=== PATIENT | female | born 1945 | race Caucasian/White ===

== ENCOUNTER 2024-01-24 09:09 | Emergency (ER) | payer MEDICARE, SELFPAY ==
[2024-01-24] VITALS (9 sets, daily range): BP systolic 95–135; BP diastolic 51–68; PULSE 55–68; RESP 16–18; TEMP 37.2; O2SAT 91–98; BMI 29.2
--- NOTE | 2024-01-24 09:26 | PC.NURSE ---
UA sent to lab Dr. Sosa at [facility] for pt eval; family also at [facility]
--- NOTE | 2024-01-24 09:34 | CT_ITS ---
PROCEDURE INFORMATION: Exam: CT Abdomen And Pelvis With Contrast Exam date and time: 01/24/2024 11:30 AM Age: 78 years old Clinical indication: Nausea and vomiting and other: Diarrhea; Additional info: Diffuse abd pain; Nausea TECHNIQUE: Imaging protocol: Computed tomography of the abdomen and pelvis with contrast. Radiation optimization: All CT scans at this facility use at least one of these dose optimization techniques: automated exposure control; mA and/or kV adjustment per patient size (includes targeted exams where dose is matched to clinical indication); or iterative reconstruction. Contrast material: ISOVUE; Contrast volume: 75 ml; Contrast route: IV; COMPARISON: No relevant prior studies available. FINDINGS: Lungs: Lung bases are unremarkable. Liver: There is a 1.6 cm right hepatic lobe cyst. Gallbladder and biliary ducts: Gallbladder is distended without radiopaque cholelithiasis. No biliary ductal dilation. Pancreas: Normal. No ductal dilation. Spleen: No splenomegaly. Adrenal glands: Indeterminate 1.8 cm right adrenal nodule. Kidneys and ureters: Nephrograms are symmetric. No nephrolithiasis or hydroureteronephrosis on either side. No solid lesions. Scattered subcentimeter hypodensities in both kidneys are too small to accurately characterize. Stomach and bowel: There is liquid stool in the distal small bowel loops and throughout the colon. Mucosal hyperenhancement noted. Appendix: No evidence of appendicitis. Intraperitoneal space: There is no evidence of free intraperitoneal or pelvic fluid. There is no evidence of free intraperitoneal or pelvic fluid. Vasculature: The aorta demonstrates moderate atherosclerotic calcification. Lymph nodes: No evidence of retroperitoneal or mesenteric lymphadenopathy. Urinary bladder: Urinary bladder is unremarkable. Reproductive: Status post hysterectomy. Bones/joints: Degenerative anterolisthesis at L3 and L4 levels. No acute osseous abnormality. Soft tissues: Unremarkable. IMPRESSION: 1. Infectious/inflammatory enterocolitis 2. Indeterminate 1.8 cm right adrenal nodule. Comparison with prior exams to determinate stability or further evaluation with cross-sectional imaging with adrenal protocol can be obtained COMMENTS: Consistent with the [employer]'s Incidental Findings Committee white paper (J Am Josh Radiol 2018): Any incidental renal lesion less than 1 cm or classified as too small to characterize, or any incidental cystic renal lesion characterized as simple-appearing, is likely benign. No follow-up imaging is recommended for these lesions per consensus recommendations based on imaging criteria.
--- NOTE | 2024-01-24 09:34 | CT_ITS ---
PROCEDURE INFORMATION: Exam: CT Head Without Contrast Exam date and time: 01/24/2024 11:27 AM Age: 78 years old Clinical indication: Other: Nausea; Additional info: History of frontal sinus/brain mass - nausea TECHNIQUE: Imaging protocol: Computed tomography of the head without contrast. Radiation optimization: All CT scans at this facility use at least one of these dose optimization techniques: automated exposure control; mA and/or kV adjustment per patient size (includes targeted exams where dose is matched to clinical indication); or iterative reconstruction. COMPARISON: No relevant prior studies available. FINDINGS: Brain: There is no evidence of acute intracranial hemorrhage, extra-axial collection or locoregional mass effect. There are scattered hypodensities in the periventricular and subcortical white matter. The appearance is nonspecific, but most likely represents chronic small vessel disease in a person of this age. Cerebral ventricles: The ventricles, sulci and cisterns are normal in size and configuration. No hydrocephalus or midline structure shift Pituitary gland and sella: Pituitary gland is diffusely suspicious for lesions spread/invasion/primary pituitary neoplasm. Paranasal sinuses: There is dense soft tissue density in the sphenoid sinus. There is bone remodeling with thinning and dehiscence of the clivus. The lesion extends laterally in the left cavernous and sellar region. Mastoid air cells: Visualized mastoid air cells are well aerated. Bones: See Paranasal sinuses finding. Soft tissues: Unremarkable. 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 The sphenoid sinuse is opacified. Considerations are wide but not limited to locally invasive pituitary microadenoma, meningioma, metastases, and hematopoietic disorders such as lymphoma or myeloma. Evaluation with brain MRI is recommended for better evaluation (if not already performed).
--- NOTE | 2024-01-24 09:36 | ED_ITS ---
Discharge Plan Disposition Patient Disposition: Home, Self-Care Prescriptions Prescriptions: New ondansetron 4 mg tablet,disintegrating 4 mg PO Q6H PRN (Reason: nausea and vomiting) 5 Days Qty: 20 0RF Referrals Follow up/Referrals: Provider,Referral, [Referring] - See instructions Activity Restrictions/Add. Instructions Additional Instructions/Restrictions: Regarding your nausea vomiting and diarrhea your CT scan was consistent with enterocolitis which is most likely viral. Please follow with primary care doctor regarding this. 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 I spoke with [facility] they have her contact information and should call you early next week for a follow-up appointment with neurosurgery as well as with ENT. Clinical Impressions Clinical Impression: Nausea, Abdominal pain, Enterocolitis, Mass of sphenoid sinus Instructions Patient Instructions: DI for Diarrhea and Traveler's Diarrhea -- Adult, DI for Diarrhea and Traveler's Diarrhea -- Child, DI for Nausea -- Adult, DI for Nausea -- Child Print Language Print Language: Amharic Discharge ED Provider: Angélica Sosa General Adult HPI General Chief complaint: Nausea/Vomiting/Diarrhea Stated complaint: leg weakness, lethargic Time Seen by Provider: 01/24/24 09:25 Mode of Arrival: Ambulatory Source of Information: Patient Limitations: No Limitations Description of Symptoms (Recalled from ER Triage Doc. by RN): Patient reports that her cereal is not agreeing with her this morning. States she ate raisin brain and now she is nauseated. Son reports she has not had her medication in two weeks because they ran out of them and has an appointment today at 230 with Darius Kent to establish care. History of Present Illness HPI narrative: Patient is a 78-year-old female presented with multiple complaints. She is accompanied by her son and her grandson who are also historians. Apparently she was at a senior citizen citizen this morning, an activity center when they felt that she was acting confused. She also has had some nausea and vomiting. She states that she has ongoing nausea at the moment and some abdominal pain. 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 This was diagnosed in [place] and since she moved to [place] this has not been followed up on. She has no primary care doctor and has established care to be seen by Mima Hernandez with Dr. Walls this afternoon. At the moment family states that she is at her baseline and not confused and she denies any current focal neurologic deficits from historical standpoint. Related Data Previous Rx's ?Medication ?Instructions ?Recorded ondansetron 4 mg disintegrating 4 mg PO Q6H PRN nausea and 01/24/24 tablet vomiting 5 days #20 tabs Allergies Allergy/AdvReac Type Severity Reaction Status Date / Time No Known Allergies Allergy Verified 01/24/24 09:30 [facility] Disclaimer: The information contained in this section may have been updated after the patient was seen, as this information can be updated by other users. Social History Smoking Status: Unknown if ever smoked alcohol intake: never current occupational status: other ROS Obtained: Yes All systems reviewed & no additional complaints except as documented Physical Exam General General appearance: alert and in no apparent distress Head Head exam: atraumatic and normocephalic Respiratory Respiratory exam: Present normal lung sounds bilaterally Cardiovascular Cardiovascular exam: Present regular rate Abdominal Exam Abdominal exam: Present soft and tenderness (Diffuse abdominal tenderness with deep palpation no rebound or guarding) Neurological Exam Neurological exam: Present alert, oriented X3, CN II-XII intact, normal gait and other (Nonfocal); Absent motor sensory deficit Medical Decision Making Medical Records Screening: Per USPSTF and CDC recommendations, given the prevalence of disease in our region, it is our hospital?s policy to screen for HIV and viral Hepatitis for all patients aged 18 and over and those with ongoing risk factors. Mahesh Inquiry Pt receiving controlled substance: No Vital Signs: 01/24/24 09:11 01/24/24 09:18 01/24/24 11:45 Temperature 98.9 F Temperature Source Oral Pulse Rate 61 65 Pulse Rate [Radial] 68 Respiratory Rate 16 Blood Pressure 105/52 L Blood Pressure [Right Arm] 95/55 L Blood Pressure Mean 62 Blood Pressure Mean [Right Arm] 68 Blood Pressure Source [Right Arm] Automatic Cuff Blood Pressure Position [Right Arm] Sitting 02 Sat by Pulse Oximetry 98 96 92 L Oxygen Delivery Method Room Air Room Air 01/24/24 12:00 01/24/24 12:15 01/24/24 12:30 Temperature Temperature Source Pulse Rate 55 L 59 L 58 L Pulse Rate [Radial] Respiratory Rate Blood Pressure 108/51 L 116/55 L 122/59 L Blood Pressure [Right Arm] Blood Pressure Mean 62 66 68 Blood Pressure Mean [Right Arm] Blood Pressure Source [Right Arm] Blood Pressure Position [Right Arm] 02 Sat by Pulse Oximetry 93 L 96 96 Oxygen Delivery Method Room Air Room Air Room Air 01/24/24 12:45 01/24/24 13:01 Temperature Temperature Source Pulse Rate 59 L 65 Pulse Rate [Radial] Respiratory Rate Blood Pressure 133/62 126/63 Blood Pressure [Right Arm] Blood Pressure Mean 79 73 Blood Pressure Mean [Right Arm] Blood Pressure Source [Right Arm] Blood Pressure Position [Right Arm] 02 Sat by Pulse Oximetry 91 L 94 L Oxygen Delivery Method Lab Data Lab results reviewed: Yes I reviewed the patient's lab results. Lab Results 01/24/24 09:25: Urine Color Yellow, Urine Appearance Clear, Urine pH 5.5, Ur Specific [place] >= 1.030, Urine Protein Negative, Urine Glucose (UA) Negative, Urine Ketones Negative, Urine Blood Negative, Urine Nitrate Negative, Urine Bilirubin 1+ A, Urine Urobilinogen 0.2, Ur Leukocyte Esterase Negative, Urine RBC None, Urine WBC None, Ur Squamous Epith Cells 20-50, Urine Bacteria 1+ 01/24/24 09:40: WBC 6.3, RBC 4.87, Hgb 14.3, Hct 44.6, MCV 91.6, MCH 29.3, MCHC 32.0, RDW 14.6, Plt Count 222, MPV 7.9, Neut % (Auto) 67.1, Lymph % (Auto) 22.3, [place] % (Auto) 8.7, Eos % (Auto) 0.9, Baso % (Auto) 1.1, Neut # (Auto) 4.2, Lymph # (Auto) 1.4, [place] # (Auto) 0.6, Eos # (Auto) 0.1, Baso # (Auto) 0.1, Sodium 143, Potassium 3.5, Chloride 106, Carbon Dioxide 25, Anion Gap 15.5 H, BUN 21 H, Creatinine 1.00, Estimated Creat Clear 49, Estimated GFR 53 L, Est GFR ( Amer) 65, Glucose 255 H, Calcium 9.2, Total Bilirubin 0.6, AST 27, ALT 25, Alkaline Phosphatase 79, Total Protein 7.3, Albumin 4.3, Globulin 3.0, Albumin/Globulin Ratio 1.4, Lipase 91 01/24/24 09:40 01/24/24 09:40 Orders (Tests/Meds): ED MEDICATIONS Discontinued Medications Generic Name Dose Route Start Last Admin Trade Name Davidq PRN Reason Stop Dose Admin Lactated Ringer's 1,000 mls @ 999 mls/hr 01/24/24 09:45 01/24/24 09:43 Lactated Ringer's 1000 Ml Bag IV 01/24/24 10:45 999 mls/hr .Q1H1M MANJEET Administration Iopamidol 75 ml 01/24/24 11:45 01/24/24 11:46 Iopamidol-370 (76%);100ml Bottle IV 01/24/24 11:46 75 ml ONCE ONE Administration Ondansetron HCl 4 mg 01/24/24 09:34 01/24/24 09:43 Ondansetron 4mg/2ml Vial IV 01/24/24 09:35 4 mg ONCE ONE Administration Ondansetron HCl 4 mg 01/24/24 11:30 01/24/24 11:32 Ondansetron 4mg/2ml Vial IV 01/24/24 11:31 4 mg ONCE ONE Administration Sodium Chloride 10 ml 01/24/24 11:45 01/24/24 11:46 Sodium Chloride 0.9% 10ml Syr (Rad Only) IV 01/24/24 11:46 10 ml ONCE ONE Administration ORDERS Category Date Time Status CT abdomen pelvis w con Stat Cat Scan 01/24/24 09:[address] head/brain wo con Stat Cat Scan 01/24/24 09:34 Completed CBC w/Auto Diff [Complete Blood Count Auto Diff] Stat Lab 01/24/24 09:40 Completed CMP [Comprehensive Metabolic Panel] Stat Lab 01/24/24 09:40 Completed Lipase Stat Lab 01/24/24 09:40 Completed UA [Urinalysis and Microscopic] Stat Lab 01/24/24 09:25 Completed Medical Decision Narrative: 78-year-old female with relatively benign abdominal exam nonfocal neurologic exam presented with nausea but some abdominal pain with deep tenderness. Differential is broad and from an abdominal standpoint could be malignancy bowel obstruction etc. will get a contrasted CT scan. With a history of frontal sinus/frontal lobe mass certainly intracranial pressure increases could be causing nausea as well get get a noncontrasted CT scan for further evaluation. Nausea medicine IV fluids CT scans pending will reassess. Reassessment clinically of the patient at 1:25 PM she appears well GCS of 15 nonfocal neurologic exam abdominal exam is benign. Labs unremarkable from an emergency standpoint. CT scan of the patient's abdomen pelvis I personally interpreted which shows diffuse enterocolitis most likely viral. I suspect this is not bacterial in nature or associated with ischemia etc. Regarding the CT of her head there is a mass originating in the sphenoid sinus that is locally destructive as well as invasive into the sella and parasellar regions. I discussed the case with Dr. Szymanski who reviewed the images with [facility] neurosurgery and we will get a follow-up appointment with ENT as well as neurosurgery that should call early next week for those follow-up appointments family and patient are aware of this and agreeable to this plan. Lastly I encouraged that she keep her primary care appointment this afternoon to establish care for someone to coordinate all of this. Critical Care Critical Care Time Critical Care Time: No
[2024-01-24 09:39] LABS: Microscopic, Urine URINE MICROSCOPIC (MICROSCOPIC)
[2024-01-24] MEDS: LACTATED RINGERS 1000ML 1,000 ML 999 ML IV (09:43)
[2024-01-24] MEDS: ONDANSETRON 4MG/2ML VIAL 4 MG IV ×2 (09:43→11:32)
[2024-01-24 09:47] LABS: Appearance,Urine CLEAR (Clear); Blood, Urine Negative (Negative); Color,Urine YELLOW (Yellow); Glucose,Urine (UA) Negative (Negative); Ketones,Urine Negative (Negative); Leukocyte Esterase,Urine Negative (Negative); Nitrate,Urine Negative (Negative); PH,Urine 5.5 (5.0-8.5); Protein,Urine Negative (Negative); Specific Gravity, Urine >= 1.030 (1.005-1.030); Urobilinogen,Urine 0.2 EU/dl (0.2)
[2024-01-24 09:53] LABS: Basophils # 0.1 K/mm3 (0-0.2); Basophils % 1.1 % (0.1-2.0); Eosinophils # 0.1 K/mm3 (0.0-0.4); Eosinophils % 0.9 % (0.1-12.0); Hematocrit 44.6 % (37.0-47.0); Hemoglobin 14.3 g/dL (12.2-16.2); Lymphocytes # 1.4 K/mm3 (0.7-4.5); Lymphocytes % 22.3 % (10-50); Mean Corpuscular Hemoglobin 29.3 pg (27.0-31.2); Mean Corpuscular Volume 91.6 fl (81-99); Mean Platelet Volume 7.9 fl (7.4-10.4); Monocytes # 0.6 K/mm3 (0.1-1.0); Monocytes % 8.7 % (1.7-9.3); Neutrophils # 4.2 K/mm3 (1.8-7.8); Neutrophils % 67.1 % (37.0-80.0); Platelet Count 222 K/mm3 (142-424); Red Blood Count 4.87 M/mm3 (4.20-5.40); Red Cell Distribution Width 14.6 % (11.5-17.5); White Blood Count 6.3 K/mm3 (4.8-10.8)
[2024-01-24 09:55] LABS: Bilirubin,Urine 1+ (Negative)
[2024-01-24 09:56] LABS: Albumin Level 4.3 g/dl (3.5-5.0); Chloride 106 mmol/L (98-107); Potassium 3.5 mmoL/L (3.5-5.1); Sodium 143 mmol/L (136-145)
[2024-01-24 09:58] LABS: Blood Urea Nitrogen 21 mg/dl (7-17); Creatinine Clearance Estimated 49 mL/min (50-200); Estimated Glomerular Filt Rate 53 ml/min (>60); GFR (African American) 65 ML/MIN (>60)
[2024-01-24 09:59] LABS: Alanine Aminotransferase 25 U/L (12-78); Albumin/Globulin Ratio 1.4 (1.1-1.8); Alkaline Phosphatase 79 U/L (38-126); Anion Gap 15.5 mEq/L (5-15); Aspartate Amino Transferase 27 U/L (14-36); Bilirubin,Total 0.6 mg/dl (0.2-1.3); Calcium 9.2 mg/dl (8.4-10.2); Carbon Dioxide 25 mmol/L (22.0-30.0); Glucose 255 mg/dl (74-100); Lipase 91 U/L (23-300); Total Protein,Serum 7.3 g/dl (6.3-8.2)
[2024-01-24 10:07] LABS: Bacteria,Urine 1+ /lpf; Squamous Epithelial Cell,Urine 20-50 #/hpf (0-5)
--- NOTE | 2024-01-24 10:12 | PC.NURSE ---
pt ambulatory to restroom
--- NOTE | 2024-01-24 11:14 | PC.NURSE ---
pt going to CT
[2024-01-24] MEDS: IOPAMIDOL-370 (76%);100ML BOTTLE 75 ML IV (11:46)
[2024-01-24] MEDS: SODIUM CHLORIDE 0.9% 10ML SYR (RAD ONLY) 10 ML IV (11:46)
--- NOTE | 2024-01-24 12:54 | PC.NURSE ---
Called [facility] for Neurosurgery consult; awaiting a call back. Disc imaging is being made and images were powershared to [facility]
--- NOTE | 2024-01-24 12:56 | PC.NURSE ---
Dr. Sosa speaking with [facility] Neurosurgery
--- NOTE | 2024-01-24 13:27 | PC.NURSE ---
pt had an incontinent BM on ED stretcher; I assisted in helping get her cleaned up. Pants were soiled and placed in a belonging bag.
== END 2024-01-24 13:37 | disposition home or self-care (01) ==
PROVIDERS: Emergency Provider Student in an Organized Health Care Education/Training Program; PCP Family Medicine
DX: J34.89 Other specified disorders of nose and nasal sinuses (principal); K52.9 Noninfective gastroenteritis and colitis, unspecified; R11.0 Nausea; R10.9 Unspecified abdominal pain; R41.82 Altered mental status, unspecified; R53.1 Weakness
CPT/HCPCS: 70450; 74177; 80053; 81001; 83690; 85025; 96361; 96374; 96375; 99285; J2405; J7120; Q9967

== ENCOUNTER 2024-03-05 14:45 | Outpatient (CLI) | payer MEDICARE, SELFPAY ==
[2024-03-05] MEDS: GADOTERIDOL INJ 20ML SYRINGE 19 ML IV ×2 (09:19→19:00)
--- NOTE | 2024-03-05 15:00 | MR_ITS ---
PROCEDURE INFORMATION: Exam: MR Head Without and With Contrast, Sella Exam date and time: 03/05/2024 3:52 PM Age: 79 years old Clinical indication: Other: Eval pituitary; Prior surgery; Surgery date: <1 month; Surgery type: Sinus biopsy; Additional info: Evaluate pituitary TECHNIQUE: Imaging protocol: MR of the head without and with intravenous contrast. Exam focused on the sella. Contrast material: PROHANCE; Contrast volume: 19 ml; Contrast route: IV; COMPARISON: CT HEAD/BRAIN WO CON 01/24/2024 11:27 AM FINDINGS: Brain: The cerebellar tonsils are not low-lying. There is no abnormal restricted diffusion in the brain. There is mild prominence of the cerebral sulci. There are scattered foci of increased T2 signal in the supratentorial white matter. There is normal signal in the basal ganglia, thalamus, brainstem and cerebellum. There are no pathologic extra-axial fluid collections. Intracranial flow voids are patent. Hippocampi are symmetric and normal in appearance. There are no areas of abnormal enhancement in the brain. Cerebral ventricles: Unremarkable. No ventriculomegaly. Pituitary gland and sella: The anterior pituitary gland is not enlarged. Mastoid air cells: Mastoid air cells are clear. Paranasal sinuses: There appears to be extension into the left cavernous sinus and posterior ethmoid air cells. There is abnormal restricted diffusion within the sphenoid sinus lesion. The maxillary sinuses, anterior ethmoid air cells and frontal sinuses are clear. Orbital cavities: Globes and orbits are normal. Optic nerves and optic chiasm have normal signal. Bones/joints: There is a T1 and T2 hyperintense lesion involving the sphenoid sinus with no significant postcontrast enhancement. IMPRESSION: 1. There is a nonenhancing T1 hyperintense lesion with the epicenter in the sphenoid sinus. Differential consideration includes allergic fungal sinusitis versus proteinaceous secretions. There appears to be extension into the left cavernous sinus. Correlation with CTA head angiogram is recommended. 2. Anterior pituitary gland appears unremarkable and is not enlarged. 3. Mild chronic small vessel ischemic disease changes are present.
[2024-03-05 15:11] LABS: Blood Urea Nitrogen 28 mg/dl (7-17); Estimated Glomerular Filt Rate 60 ml/min (>60); GFR (African American) 73 ML/MIN (>60)
[2024-03-05] MEDS: 0.9 % SODIUM CHLORIDE 50 ML VIAL IV (17:22)
[2024-03-05] MEDS: SODIUM CHLORIDE 0.9% 10ML SYR (RAD ONLY) 10 ML IV (17:22)
== END 2024-03-05 23:59 | disposition home or self-care (01) ==
LOC: RAD 14:46
PROVIDERS: PCP Family Medicine; Visit Provider Neurological Surgery
DX: D35.2 Benign neoplasm of pituitary gland (principal)
CPT/HCPCS: 36415; 70553; 82565; 84520; A9576

== ENCOUNTER 2024-04-27 12:54 | Emergency (ER) | payer MEDICARE, SELFPAY ==
--- NOTE | 2024-04-27 12:56 | HMH.EDGENADL ---
Discharge Plan Disposition Patient Disposition: Home, Self-Care Condition: Good Prescriptions Prescriptions: No Action pantoprazole 40 mg tablet,delayed release (DR/EC) 40 mg PO DAILY Qty: 30 2RF simvastatin 20 mg tablet 20 mg PO DAILY Qty: 30 2RF cyclobenzaprine 5 mg tablet 5 mg PO HS Qty: 30 0RF duloxetine 30 mg capsule,delayed release(DR/EC) See Rx Instructions .ROUTE .COMPLEX Qty: 90 2RF Dose Instruction: Take 1 capsule by mouth once daily Rx Instructions: Take 1 capsule by mouth once daily ondansetron 4 mg tablet,disintegrating 4 mg PO Q6H PRN (Reason: nausea and vomiting) 5 Days Qty: 20 0RF Referrals Follow up/Referrals: Dwaine Walls MD [Primary Care Provider] - See instructions Activity Restrictions/Add. Instructions Additional Instructions/Restrictions: Please utilize bacitracin or Neosporin on your abrasion on your nose. They found incidentally a thyroid nodule. You need to follow-up with your PCP to have this evaluated as an outpatient. If you have any new continued or worsening signs or symptoms follow-up with your PCP sooner or return to the ER. Clinical Impressions Clinical Impression: Abrasion of nose Qualifiers: Encounter type: initial encounter Qualified Code(s): S00.31XA - Abrasion of nose, initial encounter Fall Qualifiers: Encounter type: initial encounter Qualified Code(s): W19.XXXA - Unspecified fall, initial encounter Instructions Patient Instructions: DI for Laceration Repair Print Language Print Language: Uzbek Discharge ED Provider: Randy Romero General Adult HPI <CHARLENE Harris - Last Filed: 04/27/24 14:48> General Chief complaint: Wound/Laceration Stated complaint: [id number], Laceration to bridge of nose, Time Seen by Provider: 04/27/24 12:56 History of Present Illness HPI narrative: Patient presents for evaluation of facial trauma. Patient states she was walking through her yard slipped on ice/snow landing face first in the yard. She was able to get up immediately and denies any head neck pain loss of consciousness but noticed that she was bleeding. She suffered a lesion across the bridge of her nose. Patient denies any other injury or pain. Related Data Previous Rx's ?Medication ?Instructions ?Recorded ondansetron 4 mg disintegrating 4 mg PO Q6H PRN nausea and 01/24/24 tablet vomiting 5 days #20 tabs pantoprazole 40 mg tablet,delayed 40 mg PO DAILY #30 tabs 01/24/24 release simvastatin 20 mg tablet 20 mg PO DAILY #30 tabs 01/24/24 cyclobenzaprine 5 mg tablet 5 mg PO HS #30 tabs 03/26/24 duloxetine 30 mg capsule,delayed See Rx Instructions .Route 04/13/24 release .COMPLEX #90 ea Allergies Allergy/AdvReac Type Severity Reaction Status Date / Time No Known Allergies Allergy Verified 04/27/24 13:10 PFS <CHARLENE Harris - Last Filed: 04/27/24 14:48> [facility] Disclaimer: The information contained in this section may have been updated after the patient was seen, as this information can be updated by other users. Social History Smoking Status: Never smoker alcohol intake: never current occupational status: other Travel in the last 8 weeks: None Other Medical History Have you received the Pneumonia Vaccine: Yes <CHARLENE Harris - Last Filed: 04/27/24 14:48> ROS Obtained: Yes Systems reviewed as appropriate & no additional complaints except as documented Physical Exam <CHARLENE Harris - Last Filed: 04/27/24 14:48> General General appearance: alert and in no apparent distress Respiratory Respiratory exam: Present normal lung sounds bilaterally Cardiovascular Cardiovascular exam: Present regular rate Neurological Exam Neurological exam: Present alert and oriented X3 Medical Decision Making <CHARLENE Harris - Last Filed: 04/27/24 14:48> Medical Records Screening: Per USPSTF and CDC recommendations, given the prevalence of disease in our region, it is our hospital?s policy to screen for HIV and viral Hepatitis for all patients aged 18 and over and those with ongoing risk factors. Mahesh Inquiry Pt receiving controlled substance: No Vital Signs: 04/27/24 13:03 04/27/24 13:15 04/27/24 13:46 Temperature 99.4 F Temperature Source Oral Pulse Rate 98 H 75 Pulse Rate [Right] 88 Respiratory Rate 18 Blood Pressure 167/108 H 178/89 H Blood Pressure [Right Arm] 188/110 H Blood Pressure Mean [Right Arm] 136 Blood Pressure Source Blood Pressure Source [Right Arm] Automatic Cuff Blood Pressure Position Blood Pressure Position [Right Arm] Sitting 02 Sat by Pulse Oximetry 95 95 92 L Oxygen Delivery Method Room Air Room Air Room Air 04/27/24 14:00 04/27/24 14:15 04/27/24 14:40 Temperature 98.1 F Temperature Source Oral Pulse Rate 98 H 100 H 72 Pulse Rate [Right] Respiratory Rate 18 Blood Pressure 165/101 H 179/125 H 191/117 H Blood Pressure [Right Arm] Blood Pressure Mean [Right Arm] Blood Pressure Source Automatic Cuff Blood Pressure Source [Right Arm] Blood Pressure Position Sitting Blood Pressure Position [Right Arm] 02 Sat by Pulse Oximetry 94 L 95 Oxygen Delivery Method Room Air Room Air Room Air Orders (Tests/Meds): ED MEDICATIONS Discontinued Medications Generic Name Dose Route Start Last Admin Trade Name Freq PRN Reason Stop Dose Admin Acetaminophen 1,000 mg 04/27/24 13:11 04/27/24 13:19 Acetaminophen 500mg Tab PO 04/27/24 13:12 1,000 mg ONCE ONE Administration Tetanus/Reduced Diphtheria/Acell Pertussis 0.5 ml 04/27/24 13:11 04/27/24 13:20 Tet/Diphth/Pert-Adult 0.5ml Syringe IM 04/27/24 13:12 0.5 ml .ONCE ONE Administration ORDERS Category Date Time Status CT cervical spine wo con Stat Cat Scan 04/27/24 13:[address] facial bones wo con Stat Cat Scan 04/27/24 13:[address] head/brain wo con Stat Cat Scan 04/27/24 13:11 Completed Medical Decision Narrative: In summary patient is a 79-year-old female who presents to the emergency department for evaluation of fall. Patient is initially hypertensive at 188/110 with a pulse of 88 with sinus rhythm on the bedside monitor breathing 18 times a minute satting at 95% on room air upon arrival, with a temperature of 99.4 currently. Physical exam is remarkable for an abrasion over the bridge of her nose but no palpable bony deformity. Nares are patent with no evidence of epistaxis. Posterior neck is soft nontender no palpable bony deformity. Patient is awake alert and oriented person but circumstance [place] Coma Score 15 cranial nerves II through XII are intact grossly to exam. Differential diagnosis includes simple abrasion versus facial fracture versus C-spine injury versus head injury etc. Initial workup will be conducted with CT scan of the head C-spine and face without contrast. Initial interventions include Tylenol and Tdap. 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 Incidentally a thyroid nodule seen on the right incompletely imaged. Upon repeat evaluation patient reports good improvement after initial intervention of her face pain. Given this patient is appropriate for discharge with follow-up with her PCP for outpatient evaluation of her thyroid nodule and wound care instructions were given for topical bacitracin or Neosporin and strict return precautions. <Randy Romero MD - Last Filed: 04/27/24 20:10> Vital Signs: 04/27/24 13:03 04/27/24 13:15 04/27/24 13:46 Temperature 99.4 F Temperature Source Oral Pulse Rate 98 H 75 Pulse Rate [Right] 88 Respiratory Rate 18 Blood Pressure 167/108 H 178/89 H Blood Pressure [Right Arm] 188/110 H Blood Pressure Mean [Right Arm] 136 Blood Pressure Source Blood Pressure Source [Right Arm] Automatic Cuff Blood Pressure Position Blood Pressure Position [Right Arm] Sitting 02 Sat by Pulse Oximetry 95 95 92 L Oxygen Delivery Method Room Air Room Air Room Air 04/27/24 14:00 04/27/24 14:15 04/27/24 14:40 Temperature 98.1 F Temperature Source Oral Pulse Rate 98 H 100 H 72 Pulse Rate [Right] Respiratory Rate 18 Blood Pressure 165/101 H 179/125 H 191/117 H Blood Pressure [Right Arm] Blood Pressure Mean [Right Arm] Blood Pressure Source Automatic Cuff Blood Pressure Source [Right Arm] Blood Pressure Position Sitting Blood Pressure Position [Right Arm] 02 Sat by Pulse Oximetry 94 L 95 Oxygen Delivery Method Room Air Room Air Room Air Orders (Tests/Meds): ED MEDICATIONS Discontinued Medications Generic Name Dose Route Start Last Admin Trade Name Freq PRN Reason Stop Dose Admin Acetaminophen 1,000 mg 04/27/24 13:11 04/27/24 13:19 Acetaminophen 500mg Tab PO 04/27/24 13:12 1,000 mg ONCE ONE Administration Tetanus/Reduced Diphtheria/Acell Pertussis 0.5 ml 04/27/24 13:11 04/27/24 13:20 Tet/Diphth/Pert-Adult 0.5ml Syringe IM 04/27/24 13:12 0.5 ml .ONCE ONE Administration ORDERS Category Date Time Status CT cervical spine wo con Stat Cat Scan 04/27/24 13:[address] facial bones wo con Stat Cat Scan 04/27/24 13:[address] head/brain wo con Stat Cat Scan 04/27/24 13:11 Completed Medical Decision Narrative: In summary patient is a 79-year-old female who presents to the emergency department for evaluation of fall. Patient is initially hypertensive at 188/110 with a pulse of 88 with sinus rhythm on the bedside monitor breathing 18 times a minute satting at 95% on room air upon arrival, with a temperature of 99.4 currently. Physical exam is remarkable for an abrasion over the bridge of her nose but no palpable bony deformity. Nares are patent with no evidence of epistaxis. Posterior neck is soft nontender no palpable bony deformity. Patient is awake alert and oriented person but circumstance [place] Coma Score 15 cranial nerves II through XII are intact grossly to exam. Differential diagnosis includes simple abrasion versus facial fracture versus C-spine injury versus head injury etc. Initial workup will be conducted with CT scan of the head C-spine and face without contrast. Initial interventions include Tylenol and Tdap. 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 Incidentally a thyroid nodule seen on the right incompletely imaged. Upon repeat evaluation patient reports good improvement after initial intervention of her face pain. Given this patient is appropriate for discharge with follow-up with her PCP for outpatient evaluation of her thyroid nodule and wound care instructions were given for topical bacitracin or Neosporin and strict return precautions. I was consulted by the KARTIK, and we discussed the complexity of the problems being addressed. I approve the treatment and management plan for this patient's care in the emergency department, thus performing a substantive portion of the medical decision making. Randy Romero MD Critical Care <CHARLENE Harris - Last Filed: 04/27/24 14:48> Critical Care Time Critical Care Time: No
[2024-04-27 13:03] VITALS: BP 188/110; PULSE 88; RESP 18; TEMP 37.4; O2SAT 95; BMI 27.4
--- NOTE | 2024-04-27 13:11 | CT_ITS ---
FINAL REPORT TECHNIQUE: Noncontrast exam This study was performed with techniques to keep radiation doses as low as reasonably achievable, (ALARA). Individualized dose reduction techniques using automated exposure control or adjustment of mA and/or kV according to the patient''s size were employed. CLINICAL HISTORY: Fall, facial trauma to nose COMPARISON: 01/24/2024 FINDINGS: There is chronic opacification of the sphenoid sinus with abnormal soft tissue density expanding into the pituitary fossa. There is a small component of suprasellar soft tissue. 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 Findings are stable from prior exam. There is a chronic lacunar infarct in the right basal ganglia. There is mild generalized atrophy and mild chronic microvascular change. No abnormal density is seen. Ventricles are normal. There is no hemorrhage. No mass effect is seen. 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 No acute intracranial abnormality. Reviewed, Interpreted and Dictated by Sylvester August MD Transcribed by Yenifer Dykes Authenticated and [facility] [place] [place]
--- NOTE | 2024-04-27 13:11 | CT_ITS ---
FINAL REPORT TECHNIQUE: Thin section axial CT with sagittal reconstruction without contrast This study was performed with techniques to keep radiation doses as low as reasonably achievable, (ALARA). Individualized dose reduction techniques using automated exposure control or adjustment of mA and/or kV according to the patient''s size were employed. CLINICAL HISTORY: Fall, facial trauma to nose FINDINGS: No fracture is seen. There is minimal anterolisthesis of C4 on C5 which is degenerative in nature. There is mild to moderate degenerative disc disease. There is no bony canal stenosis. An incidental mass is noted of the right thyroid. IMPRESSION: Moderate degenerative changes without acute cervical injury. Incidental right thyroid mass. Consider ultrasound if clinically indicated. Reviewed, Interpreted and Dictated by Sylvester August MD Transcribed by Yenifer Dykes Authenticated and [facility]
--- NOTE | 2024-04-27 13:11 | CT_ITS ---
FINAL REPORT TECHNIQUE: Thin section axial CT with coronal reconstruction without IV contrast This study was performed with techniques to keep radiation doses as low as reasonably achievable, (ALARA). Individualized dose reduction techniques using automated exposure control or adjustment of mA and/or kV according to the patient''s size were employed. CLINICAL HISTORY: Fall, facial trauma to nose FINDINGS: No fracture is present. There is chronic abnormal opacification of the sphenoid sinus which could be related to chronic sinusitis or postoperative change. This extends to involve the pituitary fossa. Remaining paranasal sinuses are clear. TMJs are intact. IMPRESSION: No evidence of facial fracture. Chronic changes of the sphenoid sinus which could be inflammatory or postoperative. Reviewed, Interpreted and Dictated by Sylvester August MD Transcribed by Yenifer Dykes Authenticated and [facility]
[2024-04-27 13:15] VITALS: BP 167/108; PULSE 98; O2SAT 95
[2024-04-27] MEDS: ACETAMINOPHEN 500MG TAB 1000 MG PO (13:19)
[2024-04-27] MEDS: TET/DIPHTH/PERT-ADULT 0.5ML SYRINGE 0.5 ML IM (13:20)
--- NOTE | 2024-04-27 13:34 | PC.NURSE ---
wound to nose cleaned
[2024-04-27 13:46] VITALS: BP 178/89; PULSE 75; O2SAT 92
[2024-04-27 14:00] VITALS: BP 165/101; PULSE 98; O2SAT 94
[2024-04-27 14:15] VITALS: BP 179/125; PULSE 100; O2SAT 95
[2024-04-27 14:40] VITALS: BP 191/117; PULSE 72; RESP 18; TEMP 36.7; O2SAT 90
== END 2024-04-27 14:45 | disposition home or self-care (01) ==
PROVIDERS: Emergency Provider Student in an Organized Health Care Education/Training Program; PCP Family Medicine
DX: S00.31XA Abrasion of nose, initial encounter (principal); Z23 Encounter for immunization; W00.0XXA Fall on same level due to ice and snow, initial encounter; Y93.9 Activity, unspecified; Y92.007 Garden or yard of unspecified non-institutional (private) residence as the place of occurrence of the external cause
CPT/HCPCS: 70450; 70486; 72125; 90471; 90715; 99284

== ENCOUNTER 2024-05-07 14:50 | Outpatient (CLI) | payer MEDICARE, SELFPAY ==
--- NOTE | 2024-05-07 14:50 | US_ITS ---
FINAL REPORT CLINICAL HISTORY: Mass of spheniod sinus COMPARISON: CT of the cervical spine dated 04/27/2024 FINDINGS: THYROID ULTRASOUND: The thyroid gland is mildly enlarged, with a somewhat heterogeneous appearance. The volume of the right lobe of the thyroid measures 13.7 cc, the left lobe of the thyroid measures 13.9 cc. There are multiple small ill-defined nodules seen bilaterally, many of which are spongiform, producing a combination of TR 2 and TR 3 nodules. There are multiple subcentimeter right lobe nodules, which probably stimulated a larger mass on CT. The largest nodule is a 9 mm TI-RADS 3 nodule in the left lobe. IMPRESSION: Multinodular goiter without a dominant nodule. According to TI-RADS criteria, no follow-up is required at this time. Reviewed, Interpreted and Dictated by Sylvester August MD Transcribed by Kasey Bassett Authenticated and [facility]
== END 2024-05-07 23:59 | disposition home or self-care (01) ==
LOC: RAD 14:50
PROVIDERS: PCP Family Medicine; Visit Provider Family Medicine
DX: J34.89 Other specified disorders of nose and nasal sinuses (principal); E04.2 Nontoxic multinodular goiter
CPT/HCPCS: 76536

== ENCOUNTER 2024-07-20 13:23 | Emergency (ER) | payer MEDICARE, SELFPAY ==
[2024-07-20] VITALS (9 sets, daily range): BP systolic 135–173; BP diastolic 69–99; PULSE 63–84; RESP 16–21; TEMP 36.6–36.7; O2SAT 90–98; BMI 30.9
--- NOTE | 2024-07-20 13:54 | PC.NURSE ---
DR SILVER AT BEDSIDE
--- NOTE | 2024-07-20 14:01 | CT_ITS ---
FINAL REPORT TECHNIQUE: After the administration of intravenous contrast, axial images were obtained through the abdomen and pelvis by computed tomography. This study was performed with technique to keep radiation doses as low as reasonably achievable, (ALARA). Individualized dose reduction techniques using automated exposure control or adjustment of the MA and/or KV according to the patient's size were employed. CLINICAL HISTORY: Fall, abdominal pain COMPARISON: 01/24/2024 FINDINGS: Abdomen: There is a benign-appearing cyst in the posterior right hepatic lobe measuring 2 cm. Liver is otherwise homogeneous. Gallbladder is present. The spleen is unremarkable. There is a stable right adrenal mass measuring 2.5 x 2.0 cm which is indeterminant. The pancreas is unremarkable. The kidneys enhance appropriately. The aorta is normal in caliber. There is no free fluid or adenopathy. A diverticulum is seen at the posterior aspect of the gastric fundus. Pelvis: There are postoperative changes to the rectum. Uterus is eccentric to the right. There is a fat-containing right inguinal hernia. The appendix is not identified. The urinary bladder is unremarkable. There is no free fluid or adenopathy. There are multilevel changes of degenerative disc disease with grade 1 spondylolisthesis of L3 on L4. No acute osseous abnormality is seen. IMPRESSION: No acute intra-abdominal process. Stable right adrenal mass, indeterminate, favor benign. Postoperative changes to the pelvis. Reviewed, Interpreted and Dictated by Juan Llamas MD Transcribed by Yenifer Dykes Authenticated and [facility]
--- NOTE | 2024-07-20 14:01 | CT_ITS ---
FINAL REPORT TECHNIQUE: Axial images were obtained from skull base to the thoracic inlet by computed tomography. Coronal and sagittal reconstruction process performed. This study was performed with techniques to keep radiation doses as low as reasonably achievable (ALARA). Individualized dose reduction techniques using automated exposure control or adjustment of mA and/or kV according to the patient''s size were employed. CLINICAL HISTORY: Fall COMPARISON: 04/27/2024 FINDINGS: There is no acute fracture or subluxation. There are mild anterior osteophytes at C4-5 and C5-6. Facets are properly aligned. There is moderate facet sclerosis. The disc spaces are preserved. The facets are normally aligned. The soft tissues are unremarkable. Limited images of the lung apices are unremarkable. Moderate calcification is noted at the carotid bifurcation. IMPRESSION: Moderate hypertrophic changes without acute fracture. Reviewed, Interpreted and Dictated by Juan Llamas MD Transcribed by Yenifer Dykes Authenticated and [facility]
--- NOTE | 2024-07-20 14:01 | CT_ITS ---
FINAL REPORT TECHNIQUE: multiple axial CT images were performed from the foramen magnum to the vertex without enhancement. CLINICAL HISTORY: Fall COMPARISON: 04/27/2024 FINDINGS: The ventricles are enlarged. There is moderate diffuse atrophy. There is periventricular white matter change likely related to small vessel disease. There is no evidence of hemorrhage. There is extensive abnormal soft tissue throughout the sphenoid sinus which is lobular. Questionable defect is seen in the anterior sella possibly due to surgery. Findings are unchanged. 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 IMPRESSION: No acute intracranial abnormality. Extensive lobular soft tissue throughout the sphenoid sinus extending to the sella likely due to chronic sinusitis or prior pituitary surgery. Reviewed, Interpreted and Dictated by Juan Llamas MD Transcribed by Yenifer Dykes Authenticated and [facility]
--- NOTE | 2024-07-20 14:01 | CT_ITS ---
FINAL REPORT TECHNIQUE: Routine axial images were obtained from the lung apices to below the diaphragm following IV contrast administration. Individualized dose reduction techniques using automated exposure control or adjustment of the mA and/or kV according to the patient size were employed. CLINICAL HISTORY: Fall, upper abdominal/lower rib pain FINDINGS: Mediastinal vasculature is adequately opacified. There is no mediastinal mass or adenopathy. Left base atelectasis is seen. The lungs are otherwise clear. There is no pleural or pericardial effusion. There is no pneumothorax. No acute osseous abnormality is seen. IMPRESSION: Unremarkable. Reviewed, Interpreted and Dictated by Juan Llamas MD Transcribed by Yenifer Dykes Authenticated and [facility]
--- NOTE | 2024-07-20 14:31 | HMH.EDGENADL ---
Discharge Plan Disposition Patient Disposition: Home, Self-Care Chief Complaint: Fall Prescriptions Prescriptions: No Action pantoprazole 40 mg tablet,delayed release (DR/EC) 40 mg PO DAILY Qty: 30 2RF simvastatin 20 mg tablet 20 mg PO DAILY Qty: 30 2RF duloxetine 30 mg capsule,delayed release(DR/EC) See Rx Instructions .ROUTE .COMPLEX Qty: 90 2RF Dose Instruction: Take 1 capsule by mouth once daily Rx Instructions: Take 1 capsule by mouth once daily ondansetron 4 mg tablet,disintegrating 4 mg PO Q6H PRN (Reason: nausea and vomiting) 5 Days Qty: 20 0RF Referrals Follow up/Referrals: Dwaine Walls MD [Primary Care Provider] - See instructions Activity Restrictions/Add. Instructions Additional Instructions/Restrictions: At this time it was felt you are safe to be discharged home. If new or worsening symptoms please do not hesitate to return the emergency department. If your pain persists after a few days please follow-up with your family doctor to make sure things are headed in the right direction. Clinical Impressions Clinical Impression: Acute upper abdominal pain, Fall (on)(from) sidewalk curb, initial encounter Print Language Print Language: Marshallese Discharge ED Provider: Ingrid Ulloa General Adult HPI <Ingrid Ulloa MD - Last Filed: 07/20/24 16:53> General Chief complaint: Fall Stated complaint: FAll Time Seen by Provider: 07/20/24 13:50 Mode of Arrival: EMS Source of Information: Patient and EMS Description of Symptoms (Recalled from ER Triage Doc. by RN): PT BROUGHT VIA EMS. PT REPORTS FALL FROM STANDING AROUND 0630 THIS AM. PT WAS GETTING INTO [facility]. REPORTS PAIN TO CHEST WALL. DENIES LOC. WAS ABLE TO GO TO [facility] TODAY, PAIN WORSENED AFTER GOING BACK HOME History of Present Illness HPI narrative: Liset Tubbs is an 79 y/o female presenting after a fall. Patient reports falling over a curb at approximately 8 AM this morning. Patient was waiting for the [facility] bus to pick her up. She denies lightheadedness or syncope. Patient states that she tripped and fell forward. She is unsure if she hit her head. She did attempt to catch her fall with her left hand. Patient states she did not come to the hospital due to her own stubbornness . Patient was at the [facility] until her abdominal pain continued and she decided to be evaluated. Patient denies blood thinner use, LOC, chest pain, shortness of breath, numbness, weakness or paresthesias. Related Data Previous Rx's ?Medication ?Instructions ?Recorded ondansetron 4 mg disintegrating 4 mg PO Q6H PRN nausea and 01/24/24 tablet vomiting 5 days #20 tabs pantoprazole 40 mg tablet,delayed 40 mg PO DAILY #30 tabs 01/24/24 release simvastatin 20 mg tablet 20 mg PO DAILY #30 tabs 01/24/24 duloxetine 30 mg capsule,delayed See Rx Instructions .Route 04/13/24 release .COMPLEX #90 ea Allergies Allergy/AdvReac Type Severity Reaction Status Date / Time No Known Allergies Allergy Verified 05/29/24 14:50 PFS <Ingrid Ulloa MD - Last Filed: 07/20/24 16:53> PFS Disclaimer: The information contained in this section may have been updated after the patient was seen, as this information can be updated by other users. Medical History Mass of sphenoid sinus Trapezius muscle spasm Falls Social History Smoking Status: Former smoker alcohol intake: never current occupational status: other Travel in the last 8 weeks?: None Have you lived/traveled outside [place] in past 30 days?: No Contact w/someone who lives/traveled outside US past 30 days?: No Exposure to someone with infectious disease in past 14 days?: No Do you have a fever (greater than 100.4 F or 38 C)?: No Have you tested positive for COVID-19?: No Exposed to someone with COVID-19 in past 14 days?: No Do you have a sore throat?: No Do you have a cough?: No Do you have any weakness?: No Do you have any diarrhea?: No Are you experiencing any unusual bleeding?: No Do you have any muscle aches/pain?: No Do you have any abdominal pain?: No Are you experiencing loss of taste or smell?: No Other Medical History Have you received the Pneumonia Vaccine: No <Ingrid Ulloa MD - Last Filed: 07/20/24 16:53> ROS Obtained: Yes All systems reviewed & no additional complaints except as documented Physical Exam <Ingrid Ulloa MD - Last Filed: 07/20/24 16:53> General General appearance: alert and in distress Head Head exam: atraumatic, normocephalic and normal inspection Eye Eye exam: Present normal appearance, PERRL and EOMI ENT ENT exam: Present normal exam, normal oropharynx, mucous membranes moist and normal external ear exam Neck Neck exam: Present normal inspection, full ROM and trachea midline; Absent meningismus or lymphadenopathy Chest Chest inspection: Present normal inspection and symmetric chest wall rise; Absent tenderness Respiratory Respiratory exam: Present normal lung sounds bilaterally; Absent respiratory distress Cardiovascular Cardiovascular exam: Present regular rate and normal rhythm; Absent JVD Abdominal Exam Abdominal exam: Present soft and tenderness; Absent distention or guarding Abdominal tenderness: Present RUQ, LUQ and epigastrium Extremities Exam Extremities exam: Present normal inspection, full ROM and normal capillary refill; Absent calf tenderness Back Exam Back exam: Present normal inspection; Absent tenderness Neurological Exam Neurological exam: Present alert and oriented X3; Absent motor sensory deficit Psychiatric Psychiatric exam: Present normal affect and normal mood Skin Skin exam: Present warm, dry, intact and normal color Medical Decision Making <Ingrid Ulloa MD - Last Filed: 07/20/24 16:53> Medical Records Medical records reviewed: Yes I reviewed the patient's medical records. Screening: Per USPSTF and CDC recommendations, given the prevalence of disease in our region, it is our hospital?s policy to screen for HIV and viral Hepatitis for all patients aged 18 and over and those with ongoing risk factors. Mahesh Inquiry Pt receiving controlled substance: No Vital Signs: 07/20/24 13:41 07/20/24 14:01 07/20/24 14:42 Temperature 98.0 F Temperature Source Oral Pulse Rate 84 67 Pulse Rate [Apical] 83 Respiratory Rate 18 21 21 Blood Pressure 173/94 H 148/85 H Blood Pressure [Right Arm] 165/99 H Blood Pressure Mean 106 Blood Pressure Mean [Right Arm] 121 Blood Pressure Source [Right Arm] Automatic Cuff Blood Pressure Position [Right Arm] Sitting 02 Sat by Pulse Oximetry 98 95 91 L Oxygen Delivery Method Room Air Room Air 07/20/24 15:31 07/20/24 16:01 07/20/24 16:31 Temperature Temperature Source Pulse Rate 82 78 64 Pulse Rate [Apical] Respiratory Rate 19 21 17 Blood Pressure 161/83 H 135/74 152/69 H Blood Pressure [Right Arm] Blood Pressure Mean Blood Pressure Mean [Right Arm] Blood Pressure Source [Right Arm] Blood Pressure Position [Right Arm] 02 Sat by Pulse Oximetry 92 L 90 L 91 L Oxygen Delivery Method Room Air Room Air Room Air 07/20/24 17:01 07/20/24 17:31 Temperature Temperature Source Pulse Rate 63 64 Pulse Rate [Apical] Respiratory Rate 18 19 Blood Pressure 154/80 H 139/78 Blood Pressure [Right Arm] Blood Pressure Mean Blood Pressure Mean [Right Arm] Blood Pressure Source [Right Arm] Blood Pressure Position [Right Arm] 02 Sat by Pulse Oximetry 92 L 91 L Oxygen Delivery Method Room Air Room Air Lab Data Lab results reviewed: Yes I reviewed the patient's lab results. Lab Results 07/20/24 14:20: WBC 10.9 H, RBC 4.53, Hgb 13.2, Hct 42.5, MCV 93.8, MCH 29.1, MCHC 31.1 L, RDW 14.4, Plt Count 265, MPV 10.3, Neut % (Auto) 79.7, Lymph % (Auto) 10.9, Ell[place] % (Auto) 7.6, Eos % (Auto) 0.7, Baso % (Auto) 0.6, Neut # (Auto) 8.7 H, Lymph # (Auto) 1.2, Ellsworth # (Auto) 0.8, Eos # (Auto) 0.1, Baso # (Auto) 0.1, Sodium 141, Potassium 4.7, Chloride 103, Carbon Dioxide 35 H, Anion Gap 7.7, BUN 22 H, Creatinine 0.70, Estimated Creat Clear 58, Estimated GFR 81, Est GFR ( Amer) 97, Glucose 134 H, Calcium 9.5, Total Bilirubin 0.3, AST 26, ALT 23, Alkaline Phosphatase 83, Troponin I < 0.01, Total Protein 7.1, Albumin 4.3, Globulin 2.8, Albumin/Globulin Ratio 1.5, Lipase 87 07/20/24 14:20 07/20/24 14:20 Orders (Tests/Meds): ED MEDICATIONS Discontinued Medications Generic Name Dose Route Start Last Admin Trade Name Freq PRN Reason Stop Dose Admin Iopamidol 75 ml 07/20/24 15:00 07/20/24 15:01 Iopamidol-370 (76%);100ml Bottle IV 07/20/24 15:01 75 ml ONCE ONE Administration Morphine Sulfate 4 mg 07/20/24 14:03 07/20/24 14:36 Morphine 4mg/Ml Syringe IV 07/20/24 14:04 4 mg ONCE ONE Administration Ondansetron HCl 4 mg 07/20/24 14:03 07/20/24 14:36 Ondansetron 4mg/2ml Vial IV 07/20/24 14:04 4 mg ONCE ONE Administration Oxycodone HCl 5 mg 07/20/24 16:46 07/20/24 16:55 Oxycodone 5mg Immediate Release Tablet PO 07/20/24 16:47 5 mg ONCE ONE Administration Sodium Chloride 10 ml 07/20/24 15:00 07/20/24 15:01 Sodium Chloride 0.9% 10ml Syr (Rad Only) IV 07/20/24 15:01 10 ml ONCE ONE Administration ORDERS Category Date Time Status CT abdomen pelvis w con Stat Cat Scan 07/20/24 14:[address] cervical spine wo con Stat Cat Scan 07/20/24 14:[address] chest w con Stat Cat Scan 07/20/24 14:[address] head/brain wo con Stat Cat Scan 07/20/24 14:01 Completed CBC w/Auto Diff [Complete Blood Count Auto Diff] Stat Lab 07/20/24 14:20 Completed CMP [Comprehensive Metabolic Panel] Stat Lab 07/20/24 14:20 Completed HIV Combo Stat Lab 07/20/24 14:20 Received Hepatitis C Ab Qual. W/ RFX Stat Lab 07/20/24 14:20 Received Lipase Stat Lab 07/20/24 14:20 Completed Trop I [Troponin I] Stat Lab 07/20/24 14:20 Completed Medical Decision Narrative: In summary, patient is an 79-year-old female presenting after a fall. Patient reports a mechanical fall this morning at around 8 AM. Differential diagnosis includes but is not limited to, rib fracture, cardiac contusion, pulmonary contusion, closed head injury, diaphragmatic injury, among others. Patient had a ground-level fall that did not occur due to syncope or lightheadedness. Patient also has no neurologic deficits on exam. Patient will be evaluated with labs and CT head, CT C-spine, CT chest/AP. Patient pain managed with morphine and nausea with Zofran. Patient's labs notable for slight leukocytosis of 10.9, no anemia, no thrombocytopenia. Patient's CMP nonactionable. Lipase within normal limits. Patient's CT head reviewed by me and negative for intracranial hemorrhage or skull fracture. Patient's CT abdomen/pelvis reviewed by me and negative for pneumoperitoneum, bowel wall thickening, pancreatic abnormality or pneumobilia. Patient CT C-spine reviewed by me and negative for fracture or malalignment. CT chest personally reviewed by me negative for pneumothorax or rib fracture/sternum fracture. Final radiologic reads demonstrate no acute findings in CT head, CT C-spine, CT chest, or CTAP. On reassessment, patient continues to have significant abdominal pain across the upper abdomen. Patient given oral pain medication and will be reassessed. At this time, patient care signed out to oncoming physician, Dr. Angeles pending reevaluation after additional pain medication. <Srini Angeles MD - Last Filed: 07/20/24 18:42> Vital Signs: 07/20/24 13:41 07/20/24 14:01 07/20/24 14:42 Temperature 98.0 F Temperature Source Oral Pulse Rate 84 67 Pulse Rate [Apical] 83 Respiratory Rate 18 21 21 Blood Pressure 173/94 H 148/85 H Blood Pressure [Right Arm] 165/99 H Blood Pressure Mean 106 Blood Pressure Mean [Right Arm] 121 Blood Pressure Source [Right Arm] Automatic Cuff Blood Pressure Position [Right Arm] Sitting 02 Sat by Pulse Oximetry 98 95 91 L Oxygen Delivery Method Room Air Room Air 07/20/24 15:31 07/20/24 16:01 07/20/24 16:31 Temperature Temperature Source Pulse Rate 82 78 64 Pulse Rate [Apical] Respiratory Rate 19 21 17 Blood Pressure 161/83 H 135/74 152/69 H Blood Pressure [Right Arm] Blood Pressure Mean Blood Pressure Mean [Right Arm] Blood Pressure Source [Right Arm] Blood Pressure Position [Right Arm] 02 Sat by Pulse Oximetry 92 L 90 L 91 L Oxygen Delivery Method Room Air Room Air Room Air 07/20/24 17:01 07/20/24 17:31 Temperature Temperature Source Pulse Rate 63 64 Pulse Rate [Apical] Respiratory Rate 18 19 Blood Pressure 154/80 H 139/78 Blood Pressure [Right Arm] Blood Pressure Mean Blood Pressure Mean [Right Arm] Blood Pressure Source [Right Arm] Blood Pressure Position [Right Arm] 02 Sat by Pulse Oximetry 92 L 91 L Oxygen Delivery Method Room Air Room Air Lab Data Lab Results 07/20/24 14:20: WBC 10.9 H, RBC 4.53, Hgb 13.2, Hct 42.5, MCV 93.8, MCH 29.1, MCHC 31.1 L, RDW 14.4, Plt Count 265, MPV 10.3, Neut % (Auto) 79.7, Lymph % (Auto) 10.9, Ellsworth % (Auto) 7.6, Eos % (Auto) 0.7, Baso % (Auto) 0.6, Neut # (Auto) 8.7 H, Lymph # (Auto) 1.2, Ell[place] # (Auto) 0.8, Eos # (Auto) 0.1, Baso # (Auto) 0.1, Sodium 141, Potassium 4.7, Chloride 103, Carbon Dioxide 35 H, Anion Gap 7.7, BUN 22 H, Creatinine 0.70, Estimated Creat Clear 58, Estimated GFR 81, Est GFR ( Amer) 97, Glucose 134 H, Calcium 9.5, Total Bilirubin 0.3, AST 26, ALT 23, Alkaline Phosphatase 83, Troponin I < 0.01, Total Protein 7.1, Albumin 4.3, Globulin 2.8, Albumin/Globulin Ratio 1.5, Lipase 87 Orders (Tests/Meds): ED MEDICATIONS Discontinued Medications Generic Name Dose Route Start Last Admin Trade Name Davidq PRN Reason Stop Dose Admin Iopamidol 75 ml 07/20/24 15:00 07/20/24 15:01 Iopamidol-370 (76%);100ml Bottle IV 07/20/24 15:01 75 ml ONCE ONE Administration Morphine Sulfate 4 mg 07/20/24 14:03 07/20/24 14:36 Morphine 4mg/Ml Syringe IV 07/20/24 14:04 4 mg ONCE ONE Administration Ondansetron HCl 4 mg 07/20/24 14:03 07/20/24 14:36 Ondansetron 4mg/2ml Vial IV 07/20/24 14:04 4 mg ONCE ONE Administration Oxycodone HCl 5 mg 07/20/24 16:46 07/20/24 16:55 Oxycodone 5mg Immediate Release Tablet PO 07/20/24 16:47 5 mg ONCE ONE Administration Sodium Chloride 10 ml 07/20/24 15:00 07/20/24 15:01 Sodium Chloride 0.9% 10ml Syr (Rad Only) IV 07/20/24 15:01 10 ml ONCE ONE Administration ORDERS Category Date Time Status CT abdomen pelvis w con Stat Cat Scan 07/20/24 14:[address] cervical spine wo con Stat Cat Scan 07/20/24 14:[address] chest w con Stat Cat Scan 07/20/24 14:[address] head/brain wo con Stat Cat Scan 07/20/24 14:01 Completed CBC w/Auto Diff [Complete Blood Count Auto Diff] Stat Lab 07/20/24 14:20 Completed CMP [Comprehensive Metabolic Panel] Stat Lab 07/20/24 14:20 Completed HIV Combo Stat Lab 07/20/24 14:20 Received Hepatitis C Ab Qual. W/ RFX Stat Lab 07/20/24 14:20 Received Lipase Stat Lab 07/20/24 14:20 Completed Trop I [Troponin I] Stat Lab 07/20/24 14:20 Completed Medical Decision Narrative: In summary, patient is an 79-year-old female presenting after a fall. Patient reports a mechanical fall this morning at around 8 AM. Differential diagnosis includes but is not limited to, rib fracture, cardiac contusion, pulmonary contusion, closed head injury, diaphragmatic injury, among others. Patient had a ground-level fall that did not occur due to syncope or lightheadedness. Patient also has no neurologic deficits on exam. Patient will be evaluated with labs and CT head, CT C-spine, CT chest/AP. Patient pain managed with morphine and nausea with Zofran. Patient's labs notable for slight leukocytosis of 10.9, no anemia, no thrombocytopenia. Patient's CMP nonactionable. Lipase within normal limits. Patient's CT head reviewed by me and negative for intracranial hemorrhage or skull fracture. Patient's CT abdomen/pelvis reviewed by me and negative for pneumoperitoneum, bowel wall thickening, pancreatic abnormality or pneumobilia. Patient CT C-spine reviewed by me and negative for fracture or malalignment. CT chest personally reviewed by me negative for pneumothorax or rib fracture/sternum fracture. Final radiologic reads demonstrate no acute findings in CT head, CT C-spine, CT chest, or CTAP. On reassessment, patient continues to have significant abdominal pain across the upper abdomen. Patient given oral pain medication and will be reassessed. At this time, patient care signed out to oncoming physician, Dr. Angeles pending reevaluation after additional pain medication. Srini Angeles: Upon assumption of care patient was hemodynamically stable. After oral pain medicine patient was requesting food tolerated p.o. was ambulatory at her baseline at bedside. Workup reviewed by me, hematologic labs are nonactionable. Imaging reviewed by me, no acute abnormality. Patient does have some soft tissue problems in her sphenoid sinus for which she is already aware. Given this patient is appropriate for outpatient management at this time was given return precautions. Critical Care <Ingrid Ulloa MD - Last Filed: 07/20/24 16:53> Critical Care Time Critical Care Time: No
[2024-07-20 14:32] LABS: Basophils # 0.1 K/mm3 (0-0.2); Basophils % 0.6 % (0.1-2.0); Eosinophils # 0.1 Kmm3 (0.0-0.4); Eosinophils % 0.7 % (0.1-12.0); Hematocrit 42.5 % (37.0-47.0); Hemoglobin 13.2 g/dL (12.2-16.2); Immature Granulocytes # 0.06 10^3uL; Immature Granulocytes % 0.5 %; Lymphocytes # 1.2 K/mm3 (0.7-4.5); Lymphocytes % 10.9 % (10-50); Mean Corpuscular HGB Conc 31.1 g/dL (31.8-35.4); Mean Corpuscular Hemoglobin 29.1 pg (27.0-31.2); Mean Corpuscular Volume 93.8 fl (81-99); Mean Platelet Volume 10.3 fl (7.4-10.4); Monocytes # 0.8 K/mm3 (0.1-1.0); Monocytes % 7.6 % (1.7-9.3); Neutrophils # 8.7 K/mm3 (1.8-7.8); Neutrophils % 79.7 % (37.0-80.0); Nucleated Red Blood Cells # 0 10^3/uL; Nucleated Red Blood Cells % 0 %; Platelet Count 265 K/mm3 (142-424); Red Blood Count 4.53 M/mm3 (4.20-5.40); Red Cell Distribution Width 14.4 % (11.5-17.5); Red Cell Distribution Width-SD 49.8 fL; White Blood Count 10.9 K/mm3 (4.8-10.8)
[2024-07-20 14:35] LABS: Albumin Level 4.3 g/dl (3.5-5.0); Chloride 103 mmol/L (98-107); Potassium 4.7 mmoL/L (3.5-5.1); Sodium 141 mmol/L (136-145)
[2024-07-20] MEDS: ONDANSETRON 4MG/2ML VIAL 4 MG IV (14:36)
[2024-07-20] MEDS: MORPHINE 4MG/ML SYRINGE 4 MG IV (14:36)
[2024-07-20 14:37] LABS: Alanine Aminotransferase 23 U/L (12-78); Aspartate Amino Transferase 26 U/L (14-36); Blood Urea Nitrogen 22 mg/dl (7-17); Creatinine Clearance Estimated 58 mL/min (50-200); Estimated Glomerular Filt Rate 81 ml/min (>60); GFR (African American) 97 ML/MIN (>60)
[2024-07-20 14:38] LABS: Albumin/Globulin Ratio 1.5 (1.1-1.8); Alkaline Phosphatase 83 U/L (38-126); Anion Gap 7.7 mEq/L (5-15); Bilirubin,Total 0.3 mg/dl (0.2-1.3); Calcium 9.5 mg/dl (8.4-10.2); Carbon Dioxide 35 mmol/L (22.0-30.0); Globulin 2.8 g/dL (1.3-3.2); Glucose 134 mg/dl (74-100); Lipase 87 U/L (23-300); Total Protein,Serum 7.1 g/dl (6.3-8.2)
[2024-07-20] MEDS: SODIUM CHLORIDE 0.9% 10ML SYR (RAD ONLY) 10 ML IV (15:01)
[2024-07-20] MEDS: IOPAMIDOL-370 (76%);100ML BOTTLE 75 ML IV (15:01)
[2024-07-20] MEDS: OXYCODONE 5MG IMMEDIATE RELEASE TABLET 5 MG PO (16:55)
[2024-07-20 18:10] LABS: Troponin I < 0.01 ng/ml (0.00-0.034)
[2024-07-20 18:36] LABS: HIV Combo NEGATIVE (Negative)
[2024-07-20 18:43] LABS: Hepatitis C Ab Qual. W/ RFX NEGATIVE (Negative)
== END 2024-07-20 18:55 | disposition home or self-care (01) ==
PROVIDERS: Emergency Medicine; Emergency Provider Student in an Organized Health Care Education/Training Program; PCP Family Medicine
DX: R10.10 Upper abdominal pain, unspecified (principal); R10.13 Epigastric pain; Z87.891 Personal history of nicotine dependence; W10.1XXA Fall (on)(from) sidewalk curb, initial encounter; Z11.59 Encounter for screening for other viral diseases; Z11.4 Encounter for screening for human immunodeficiency virus [HIV]
CPT/HCPCS: 70450; 71260; 72125; 74177; 80053; 83690; 84484; 85025; 86803; 87389; 96374; 96375; 99285; J2270; J2405; Q9967